=== PATIENT | female | born 1980 | race Native Hawaiian/Other Pacific Islander ===

== ENCOUNTER 2016-05-09 13:39 | Emergency (ER) | payer BC, OTHER ==
[2016-05-09 13:46] VITALS: BP 122/72; PULSE 51; RESP 20; TEMP 97.7; O2SAT 100
[2016-05-09] MEDS ORDERED: Oxycodone/Acetaminophen 5/325 mg Tab PO STA (14:24)
--- NOTE | 2016-05-09 14:26 | C.PDOC ---
History Of Present Illness 35 yr old female with PMHx of chronic low back pain, sees a chiropractor, presents to the ER for acute exacerbation of chronic right lower back pain since morning. Patient states the current pain is more intense then usual and radiates to the right posterior/lateral thigh. Patient reports feeling occasional numbness. Patient denies direct trauma, injury, fall, fever, incontinence or weakness. Denies any pain medication. acute exac chronic r lbp since today. PS HAS CHRONIC LBP BUT ONLY SEES CHIROPRACTOR. CURRENT PAIN MORE INTENSE THAN USUAL. R LB RADIATION R POST/LAT THIGH. +OCC NUMB. NO WEAKNESS, FEVER, TRAUMA. NO PAIN MEDS TRIED. EXAM MOD DIST NONTOXIC BACK LIMITED ROM DUE TO PAIN; NO SPASM, NONTEND; NO LS TEND NEURO INTACT Time Seen by Provider: 05/09/16 14:19 Chief Complaint (Nursing): Back Pain History Per: Patient History/Exam Limitations: no limitations Onset/Duration Of Symptoms: Sudden Onset (Since morining ) Current Symptoms Are (Timing): Still Present Past Medical History Reviewed: Historical Data, Nursing Documentation, Vital Signs Vital Signs: Last Vital Signs Temp 97.7 F 05/09/16 13:45 Pulse 51 L 05/09/16 13:45 Resp 20 05/09/16 13:45 BP 122/72 05/09/16 13:45 Pulse Ox 100 05/09/16 15:01 Family History: States: No Known Family Hx - Social History Hx Alcohol Use: Yes Hx Substance Use: No Review Of Systems Except As Marked, All Systems Reviewed And Found Negative. Constitutional: Negative for: Fever Genitourinary: Negative for: Incontinence Musculoskeletal: Positive for: Back Pain (Right low back pain with occasional feeling of numbness. ), Other ((+) Right low back pain radiates to posterior/ lateral thigh. ) Neurological: Negative for: Weakness Physical Exam - Physical Exam Appears: Non-toxic, In Acute Distress (Moderate ) Skin: Warm, Dry, No Rash Head: Atraumatic, Normacephalic Oral Mucosa: Moist Neck: Normal, Normal ROM, Supple Chest: Symmetrical, No Tenderness Cardiovascular: Rhythm Regular, No Murmur Back: No Muscle Spasm, Other (Limited ROM due to pain. Non tender. No LS tenderness. ) Extremity: Normal ROM, No Tenderness, No Swelling Neurological/Psych: Oriented x3, Normal Speech, Normal Motor, Normal Sensation, Normal Reflexes ED Course And Treatment O2 Sat by Pulse Oximetry: 100 Pulse Ox Interpretation: Normal Reevaluation Time: 15:34 Reassessment Condition: Improved Medical Decision Making Medical Decision Making: PLAN: * Gabapentin PO * Percocet PO * Zofran PO * Toradol IM Disposition Counseled Patient/Family Regarding: Diagnosis, Need For Followup, Rx Given - Disposition Referrals: [facility] [Outside] [facility] [Outside] [facility] [Other] Disposition: HOME/ ROUTINE Disposition Time: 15:34 Condition: IMPROVED Prescriptions: Cyclobenzaprine [Flexeril] 10 mg PO TID #15 tab Naproxen 500 mg PO BID #30 tab Gabapentin [Neurontin] 300 mg PO TID #30 cap Instructions: Sciatica (ED) - Clinical Impression Clinical Impression: Acute exacerbation of chronic low back pain - Scribe Statement The provider has reviewed the documentation as recorded by the Jane Peter Provider Attestation: All medical record entries made by the Andrésibmojgan were at my direction and personally dictated by me. I have reviewed the chart and agree that the record accurately reflects my personal performance of the history, physical exam, medical decision making, and the department course for this patient. I have also personally directed, reviewed, and agree with the discharge instructions and disposition.
[2016-05-09] MEDS ORDERED: Oxycodone/Acetaminophen 5/325 mg Tab ONE (14:31)
== END 2016-05-09 16:01 | disposition home or self-care (01) ==
LOC: C.ER 13:39
DX: M54.5 Low back pain (principal); G89.29 Other chronic pain
CPT/HCPCS: 96372; 99285; J1885